=== PATIENT | male | born 1985 | race Caucasian/White ===

== ENCOUNTER 2017-10-01 12:56 | Emergency (ER) | payer OTHER, SELFPAY ==
--- NOTE | 2017-10-01 13:37 | EDM.PDOC ---
ED HPI GENERAL MEDICAL PROBLEM - General Chief Complaint: Chest Pain Stated Complaint: CHEST PAIN Time Seen by Provider: 10/01/17 13:31 Source of Information: Reports: Patient History Limitations: Reports: No Limitations - History of Present Illness INITIAL COMMENTS - FREE TEXT/NARRATIVE: Patient is a 32-year-old gentleman who presents to the emergency department via private vehicle with a complaint of left-sided chest pain with radiation to left upper extremity. Patient states that he was eating lunch today at about noon time and while seated, felt left-sided chest pain with radiation to left upper extremity. Pain has since waxed and waned but has remained. Patient describes pain as pressure. Patient admits to similar symptoms several times a week for the past several years. He became more concerned today with radiation to the left upper extremity. Does have episodes of anxiety. However, he is not currently taking any medicine. Patient denies any trauma, shortness of breath, cough, fever, food bolus, nausea, vomiting, abdominal pain, or drug use. Does admit to moderate alcohol intake over the last few days. Onset: Today Onset Date: 10/01/17 Onset Time: 12:00 Location: Reports: Chest Quality: Reports: Pressure Severity: Mild Improves with: Reports: None Worsens with: Reports: None Context: Reports: Other (While at rest) Associated Symptoms: Reports: Chest Pain. Denies: Cough, Fever/Chills, Nausea/ Vomiting, Shortness of Breath - Related Data Allergies Allergy/AdvReac Type Severity Reaction Status Date / Time No Known Allergies Allergy Verified 10/01/17 13:48 Home Meds: Home Meds Ibuprofen 200 - 600 mg PO Q6HR PRN 10/01/17 [History] ED ROS GENERAL - Review of Systems Review Of Systems: ROS reveals no pertinent complaints other than HPI. Constitutional: Reports: No Symptoms HEENT: Reports: No Symptoms Respiratory: Reports: No Symptoms Cardiovascular: Reports: Chest Pain Endocrine: Reports: No Symptoms GI/Abdominal: Reports: No Symptoms : Reports: No Symptoms Musculoskeletal: Reports: No Symptoms Skin: Reports: No Symptoms Neurological: Reports: No Symptoms Psychiatric: Reports: No Symptoms Hematologic/Lymphatic: Reports: No Symptoms Immunologic: Reports: No Symptoms ED EXAM, GENERAL - Physical Exam Exam: See Below Exam Limited By: No Limitations General Appearance: Alert, WD/WN, No Apparent Distress Eye Exam: Bilateral Eye: Normal Inspection Nose: Normal Inspection, Normal Mucosa, No Blood Throat/Mouth: Normal Inspection, Normal Oropharynx, No Airway Compromise Head: Atraumatic, Normocephalic Neck: Normal Inspection, Supple, Non-Tender, Full Range of Motion Respiratory/Chest: No Respiratory Distress, Lungs Clear, Normal Breath Sounds, No Accessory Muscle Use, Chest Non-Tender Cardiovascular: Regular Rate, Rhythm, No Murmur GI/Abdominal: Normal Bowel Sounds, Soft, Non-Tender Back Exam: Normal Inspection. No: CVA Tenderness (L), CVA Tenderness (R) Extremities: Normal Inspection, Normal Range of Motion, Non-Tender Neurological: Alert, Oriented, Normal Cognition Psychiatric: Normal Affect, Normal Mood Skin Exam: Warm, Dry, Intact, Normal Color, No Rash Lymphatic: No Adenopathy EKG INTERPRETATION EKG Date: 10/01/17 Time: 13:15 Rhythm: Other (sinus tach) [place]: Normal P-Wave: Present QRS: Normal ST-T: Normal QT: Normal Comparison: NA - No Prior EKG Course - Orders/Labs/Meds Orders: Active Orders 24 hr Category Date Time Status CXR [Chest 2V] [CR] Stat Exams 10/01/17 13:18 Ordered CBC WITH AUTO DIFF [HEME] Stat Lab 10/01/17 13:15 Ordered COMPREHENSIVE METABOLIC PN,CMP [CHEM] Stat Lab 10/01/17 13:15 Ordered DRUG SCREEN, URINE [URCHEM] Stat Lab 10/01/17 13:21 Uncollected LIPASE [CHEM] Stat Lab 10/01/17 13:15 Ordered TROPONIN I [CHEM] Stat Lab 10/01/17 13:15 Ordered - Radiology Interpretation Free Text/Narrative:: Chest x-ray negative for acute process. - Re-Assessments/Exams Free Text/Narrative Re-Assessment/Exam: 10/01/17 14:05 Patient afebrile, nontoxic appearing. Vital signs stable. Chest pain has resolved. Mother at bedside. Mother concerned because patient has anxiety because of return. Referred patient to psychiatry follow-up for determination of condition. Departure - Departure Time of Disposition: 14:07 Disposition: Home, Self-Care 01 Condition: Good Clinical Impression: Atypical chest pain, Anxiety Instructions: Nonspecific Chest Pain, [id number], Panic Attacks, [id number] Referrals: PCP,None [Primary Care Provider] - Forms: ED Department Discharge Additional Instructions: Follow-up with your primary care physician in the next 2-3 days. - My Orders Last 24 Hours: My Active Orders 10/01/17 13:15 CBC WITH AUTO DIFF [HEME] Stat COMPREHENSIVE METABOLIC PN,CMP [CHEM] Stat LIPASE [CHEM] Stat TROPONIN I [CHEM] Stat 10/01/17 13:18 CXR [Chest 2V] [CR] Stat 10/01/17 13:21 DRUG SCREEN, URINE [URCHEM] Stat - Assessment/Plan Last 24 Hours: My Active Orders 10/01/17 13:15 CBC WITH AUTO DIFF [HEME] Stat COMPREHENSIVE METABOLIC PN,CMP [CHEM] Stat LIPASE [CHEM] Stat TROPONIN I [CHEM] Stat 10/01/17 13:18 CXR [Chest 2V] [CR] Stat 10/01/17 13:21 DRUG SCREEN, URINE [URCHEM] Stat Assessment:: Anxiety, atypical chest pain. Plan: Follow-up with PCP, psychiatry
[2017-10-01 13:55] LABS: CHLORIDE,CL 103 mmol/L (98-115); SODIUM,NA 141 mmol/L (136-145)
[2017-10-01] MEDS ORDERED: hydrOXYzine HCl 25 MG Tab PO SCH (14:00)
== END 2017-10-01 14:25 | disposition home or self-care (01) ==
LOC: KA.ED 12:56
DX: R07.89 Other chest pain (principal); F41.9 Anxiety disorder, unspecified
CPT/HCPCS: 36415; 71020; 80053; 80305; 83690; 84484; 85025; 93005; 99285; A9270; 99283